=== PATIENT | female | born 2000 | race Caucasian/White ===

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

== ENCOUNTER → 2022-08-15 | Outpatient (CLI) | payer OTHER, SELFPAY ==
--- NOTE | 2022-08-15 14:25 | US_ITS ---
STUDY: FIRST TRIMESTER OBSTETRICAL ULTRASOUND REASON FOR EXAM: Female, 21 years old dating LMP: June 07, 2022 TECHNIQUE: Transvaginal TECHNICAL QUALITY: Adequate. PRIOR ULTRASOUND: None. FINDINGS: There is visualization of a single gestational sac in a normal intrauterine position. The mean sac diameter (MSD) measures 9.9 mm, indicating an estimated gestational age (EGA) of 5 weeks, 5 days. The gestational sac shape is within normal limits. There is a visualized yolk sac. The yolk sac measures 2.8 mm. The placenta is non-visualized. There is no demonstrated embryo ( pole). The estimated gestation age (EGA) by LMP is 9 weeks, 6 days. The estimated date of delivery (GUILLE) by LMP is March 14, 2023.. The estimated gestation age (EGA) by US is 5 weeks, 5 days. The estimated date of delivery (GUILLE) by US is April 12, 2023. The uterus measures 7.2 cm x 4.5 cm x 3.7 cm. There is no demonstrated uterine fibroid. The cervix is closed. The right ovary measures 3.2 cm x 2.4 cm x 1.6 cm. There is no right ovarian cyst. There is no visualized right adnexal mass or complex lesion. The left ovary measures 3.6 x 1.9 cm x 1.8 cm. There is no left ovarian cyst. There is no visualized left adnexal mass or complex lesion. There is minimal fluid in the cul de sac. US/Init OB < 14Wks US IMPRESSION: Intrauterine gestational sac with a mean gestational age of 5 weeks and 5 days. Electronically Signed: Trey Green MD at 12:51 EDT ,
[2022-08-15 16:46] LABS: hCG Titer Quant., Serum 8686 mIU/mL (1-3)
== END | disposition home or self-care (01) ==
PROVIDERS: PCP Family Medicine; Referring Provider Obstetrics & Gynecology; Visit Provider Obstetrics & Gynecology
DX: O09.90 Supervision of high risk pregnancy, unspecified, unspecified trimester (principal); Z3A.00 Weeks of gestation of pregnancy not specified
CPT/HCPCS: 36415; 76801; 84702

== ENCOUNTER → 2022-08-17 | Outpatient (CLI) | payer OTHER, SELFPAY ==
[2022-08-17 16:13] LABS: hCG Titer Quant., Serum 14024 mIU/mL (1-3)
== END | disposition home or self-care (01) ==
PROVIDERS: PCP Family Medicine; Visit Provider Obstetrics & Gynecology
DX: O20.0 Threatened abortion (principal); Z3A.00 Weeks of gestation of pregnancy not specified
CPT/HCPCS: 84702

== ENCOUNTER → 2022-08-23 | Outpatient (CLI) | payer OTHER, SELFPAY ==
--- NOTE | 2022-08-23 16:48 | US_ITS ---
INDICATION: viability/dating EXAMINATION: Ultrasound US OB Transvaginal TECHNIQUE: Transvaginal (for optimal evaluation of the adnexa) pelvic ultrasound was performed. Grayscale, spectral waveform, and color flow Doppler evaluation of the adnexa. COMPARISON: 08/15/2022 LMP: [Unknown Beta-hCG: Unknown FINDINGS: UTERUS: 8.4 x 5.0 x 4.0 cm. RIGHT OVARY: 2.9 x 2.3 x 2.2 cm. Normal. LEFT OVARY: 3.7 x 2.2 x 1.5 cm. Normal. FREE FLUID: Trace in the cul-de-sac. INTRAUTERINE GESTATIONAL SAC: Single. Mean sac diameter 2.4 cm. YOLK SAC: Identified POLE: Identified CRL 0.73 cm. ESTIMATED GESTATION AGE: 6 weeks 5 days. HEART MOTION: 122 bpm. PLACENTA: Not visualized due to age. SUBCHORIONIC HEMORRHAGE: None. AMNIOTIC FLUID: Qualitatively normal. US/Transvaginal w/Preg US IMPRESSION: Single live intrauterine . Estimated gestational age is 6 weeks 5 days with GUILLE 04/12/2023. Electronically Signed: Brennan Tsai MD at 0:48 EDT ,
== END | disposition home or self-care (01) ==
PROVIDERS: PCP Family Medicine; Referring Provider Obstetrics & Gynecology; Visit Provider Obstetrics & Gynecology
DX: O20.0 Threatened abortion (principal); Z3A.01 Less than 8 weeks gestation of pregnancy
CPT/HCPCS: 76817

== ENCOUNTER → 2022-09-16 | Outpatient (CLI) | payer OTHER, SELFPAY ==
[2022-09-19 10:08] LABS: Chlamydia By Nucleic Acid AMP Negative (Negative); Gonococcus By Nucleic Acid AMP Negative (Negative)
== END | disposition home or self-care (01) ==
LOC: LABSPEC 15:22
PROVIDERS: PCP Family Medicine; Referring Provider Registered Nurse; Visit Provider Registered Nurse
DX: O09.90 Supervision of high risk pregnancy, unspecified, unspecified trimester (principal); Z3A.00 Weeks of gestation of pregnancy not specified
CPT/HCPCS: 87086; 87491; 87591

== ENCOUNTER → 2022-09-19 | Outpatient (CLI) | payer OTHER, SELFPAY ==
[2022-09-19 15:26] LABS: Absolute Lymphocyte Count 1.82 X10^3/uL (0.83-4.51); Absolute Neutrophil Count 7.6 X10^3/uL (2.0-7.7); Basophil# 0.03 X10^3/uL; Basophil% 0.3 % (0-1); Eosinophil# 0.05 X10^3/uL; Eosinophils% 0.5 % (0-5); Lymphocyte # 1.82 X10^3/ul (0.83-4.51); Lymphocyte % 18.3 % (19-41); Mean Corp Hgb Conc 32.5 g/dL (32-36); Mean Corpuscular Volume 89.3 fL (81-99); Mean Platelet Vol. 9.3 fl (6.2-12.0); Monocyte# 0.41 X10^3/uL; Monocyte% 4.1 % (0-10); NRBC Flagged by Analyzer 0 % (0-5); Neutrophil % 76.3 % (47-70); Platelet Count 277 K/mm3 (150-450); RBC Distribution Width CV 12.5 % (11.6-14.6); RBC Distribution Width SD 41.1 fl (35.1-43.9); Red Blood Count 4.48 M/mm3 (4.2-5.4)
[2022-09-19 15:58] LABS: Glucose Challenge Gest 1H 50g 174 mg/dL (70-140)
[2022-09-19 16:15] LABS: NATERA MAILED SPECIMEN
[2022-09-19 16:45] LABS: HIV - WCH Non-Reactive (Nonreactive); Hepatitis B Surface Antigen Non-Reactive (Nonreactive); Hepatitis C Antibody Non-Reactive (Nonreactive); Rubella IgG Reactive (Nonreactive); Syphilis Antibodies Non-reactive
== END | disposition home or self-care (01) ==
LOC: PAVLAB 15:01
PROVIDERS: PCP Family Medicine; Referring Provider Registered Nurse; Visit Provider Registered Nurse
DX: O99.210 Obesity complicating pregnancy, unspecified trimester (principal); Z3A.00 Weeks of gestation of pregnancy not specified
CPT/HCPCS: 36415; 82950; 85025; 86703; 86762; 86780; 86803; 86850; 86900; 86901; 87340

== ENCOUNTER → 2022-09-26 | Outpatient (CLI) | payer OTHER, SELFPAY ==
[2022-09-26 07:56] LABS: Glucose GTT-Gestation. Fasting 93 mg/dL (<105)
[2022-09-26 09:08] LABS: Glucose GTT-Gestational 1 Hr 138 mg/dL (<190)
[2022-09-26 09:49] LABS: Glucose GTT-Gestational 2 Hr 109 mg/dL (<165)
[2022-09-26 11:59] LABS: Glucose GTT-Gestational 3 Hr 75 L (<145)
== END | disposition home or self-care (01) ==
LOC: LAB 06:56
PROVIDERS: PCP Family Medicine; Referring Provider Registered Nurse; Visit Provider Registered Nurse
DX: Z13.1 Encounter for screening for diabetes mellitus (principal)
CPT/HCPCS: 36415; 82951; 82952

== ENCOUNTER → 2023-01-09 | Outpatient (CLI) | payer OTHER, SELFPAY ==
[2023-01-09 13:54] LABS: Absolute Lymphocyte Count 1.93 X10^3/uL (0.83-4.51); Absolute Neutrophil Count 13.1 X10^3/uL (2.0-7.7); Basophil# 0.04 X10^3/uL; Basophil% 0.3 % (0-1); Eosinophil# 0.08 X10^3/uL; Eosinophils% 0.5 % (0-5); Hematocrit 34.8 % (37-47); Hemoglobin 11.4 g/dL (12.0-15.0); Lymphocyte # 1.93 X10^3/ul (0.83-4.51); Lymphocyte % 12.2 % (19-41); Mean Corp Hgb Conc 32.8 g/dL (32-36); Mean Corpuscular Hgb 28.7 pg (27.0-32.0); Mean Corpuscular Volume 87.7 fL (81-99); Mean Platelet Vol. 9.7 fl (6.2-12.0); Monocyte# 0.51 X10^3/uL; Monocyte% 3.2 % (0-10); NRBC Flagged by Analyzer 0 % (0-5); Neutrophil # 13.06 X10^3/uL (2.7-7.7); Neutrophil % 82.8 % (47-70); Platelet Count 284 K/mm3 (150-450); RBC Distribution Width SD 41.3 fl (35.1-43.9); Red Blood Count 3.97 M/mm3 (4.2-5.4); White Blood Count 15.8 K/mm3 (4.4-11.0)
[2023-01-09 14:09] LABS: Glucose Challenge Gest 1H 50g 175 mg/dL (70-140)
[2023-01-09 14:49] LABS: HIV - WCH Non-Reactive (Nonreactive); Syphilis Antibodies Non-reactive
== END | disposition home or self-care (01) ==
PROVIDERS: PCP Family Medicine; Referring Provider Obstetrics & Gynecology; Visit Provider Obstetrics & Gynecology
DX: O09.90 Supervision of high risk pregnancy, unspecified, unspecified trimester (principal); Z3A.00 Weeks of gestation of pregnancy not specified
CPT/HCPCS: 36415; 82950; 85025; 86703; 86780

== ENCOUNTER → 2023-01-30 | Outpatient (CLI) | payer OTHER, SELFPAY ==
[2023-01-30 07:12] LABS: Glucose GTT-Gestation. Fasting 88 mg/dL (<105)
[2023-01-30 08:28] LABS: Glucose GTT-Gestational 1 Hr 159 mg/dL (<190)
[2023-01-30 09:29] LABS: Glucose GTT-Gestational 2 Hr 121 mg/dL (<165)
[2023-01-30 10:45] LABS: Glucose GTT-Gestational 3 Hr 66 L (<145)
== END | disposition home or self-care (01) ==
LOC: LAB 06:46
PROVIDERS: PCP Family Medicine; Referring Provider Advanced Practice Midwife; Visit Provider Advanced Practice Midwife
DX: O99.810 Abnormal glucose complicating pregnancy (principal); Z3A.00 Weeks of gestation of pregnancy not specified
CPT/HCPCS: 36415; 82951; 82952

== ENCOUNTER → 2023-03-20 | Outpatient (CLI) | payer OTHER, SELFPAY | END | disposition home or self-care (01) | PROVIDERS: PCP Family Medicine; Referring Provider Obstetrics & Gynecology; Visit Provider Obstetrics & Gynecology | DX: O09.90 Supervision of high risk pregnancy, unspecified, unspecified trimester (principal); Z3A.00 Weeks of gestation of pregnancy not specified | CPT/HCPCS: 87081 ==

== ENCOUNTER 2023-07-15 07:53 | Day surgery (SDC) | payer OTHER, SELFPAY ==
--- NOTE | 2023-07-15 07:39 | HP.PCM_ITS ---
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 Is patient in pain?: No Allergies amoxicillin (From Augmentin) Allergy (Severe, Verified 07/03/23 08:59) Unknownclavulanic acid (From Augmentin) Allergy (Severe, Verified 07/03/23 08:59) Unknown Medications ?Medication ?Instructions ?Recorded ?Confirmed ?Type estradiol 0.01% (0.1 mg/gram) See Rx Instructions vaginal 06/04/23 07/03/23 Rx vaginal cream .COMPLEX #42.5 grams magnesium 250 mg tablet 250 mg PO DAILY 06/04/23 07/03/23 History Post menopausal: No Patient : No : No PFSH Medical History Acne Agent affecting skin causing adverse effect Close exposure to COVID-19 virus Dysmenorrhea Encounter for removal and reinsertion of Nexplanon Sore throat Staphylococcal infection of skin Surgical History S/P myringotomy with insertion of tube Family History Grandmother Heart disease Breast cancerGrandfather Heart disease HypertensionFather Hyperlipidemia Social History adopted: No household members: spouse housing: house current occupational status: employed current occupation: [employer] current occupational exposures/hazards: No pets and animals: Yes pets and animals: dog(s) history of recent travel: No sexually active: Yes Smoking Status: Never smoker alcohol intake: never substance use type: does not use caffeine: Yes Type: coffee what type of physical activity do you participate in: none seatbelt use: always do you feel safe at home: Yes HPI labioplasty Details: CLARE WARNER is a 22 year old who presents for labial agglutination and scarring post vaginal home . Female Reproductive History Menopausal Symptoms: No night sweats History 1 Elective abortions Hx Para 1 Spontaneous abortions Hx # Term Pregnancies Ectopic pregnancies Hx # Pregnancies Multiple births # of living children 1 Past Pregnancies Del. Date Name GA/Weeks Outcome Route Bth Weight 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 Const Constitutional: Denies fatigue, night sweats, weight gain or weight loss ENT ENT: Reports system reviewed and no additional complaints, except as documented Cardio Card: Denies chest pain Resp Resp: Denies cough or dyspnea GI GI: Reports as per HPI; Denies abdominal pain, constipation, nausea or vomiting : Denies nipple discharge, urinary frequency, urinary incontinence, urinary hesitancy, urinary urgency, vaginal discharge, vaginal dryness, vaginal odor or vaginal pruritus Musc Musc: Denies arthralgias, back pain or muscle weakness Skin Skin/Breast: Denies alopecia, change in hair, dry skin, breast mass, breast pain, breast skin changes or nipple discharge Neuro Neuro: Reports system reviewed and no additional complaints, except as documented Psych Psych: Reports system reviewed and no additional complaints, except as documented Endo Endo: Denies cold intolerance, excessive sweating, heat intolerance or polydipsia Alex/Lymph Hematologic/Lymphatic: Denies easy bleeding, Denies easy bruising and Denies lymphadenopathy Exam Const General: cooperative, healthy appearing, comfortable and no acute distress Orientation: alert HENAL Head: normal to inspection and normocephalic Ears: hearing grossly normal bilaterally and external ears normal Nose: external nose normal and nares normal Face and sinus: normal facial exam Neck Neck: normal visual inspection and no lymphadenopathy Thyroid: thyroid normal Chest Chest palpation & inspection: normal inspection of the chest Resp Effort & Inspection: normal respiratory effort Cardio Rate: regular rate GI Inspection: normal to inspection and non-distended Palpation: soft and no hepatosplenomegaly Musc Other: gross motor intact no deficits, full bilateral strength Skin General: no rashes or lesions noted Neuro General: patient alert, patient awake, moves all extremities and no focal motor deficits Motor: muscle tone normal throughout Extrem General: normal to inspection and no pedal edema Psych Appearance: grossly normal Mental Status: mental status grossly normal Affect: normal affect Speech and Movement: speech and movement normal Coding Level of Care Code No Charge Diagnoses Vaginal scar N89.8 Assessment and Plan Assessment and Plan (1) Vaginal scar: Status: Acute Comment: estradiol cream/post introitus from -labialplasty planned per SM Plan After discussing the patient's diagnosis and treatment plan options, patient wishes to proceed with surgical management. I have discussed with the patient the risks, benefits, and alternatives of the procedure which include but are not limited to risks of anesthesia, bleeding, infection, possible damage to bowel, bladder, or surrounding vasculature which could lead to additional surgery to evaluate any complications. Patient agrees to procedure and wishes to proceed. ACOG/uptodate references given for additional information regarding procedure. UPDATE- I have seen the patient and performed any clinically relevant updates to the history and physical exam. Adwoa Willis MD
[2023-07-15 08:09] VITALS: BP 137/81; PULSE 101; RESP 16; TEMP 36.9; O2SAT 100; BMI 33.6
[2023-07-15] MEDS: Lactated Ringers 1,000 ML 15 ML IV (08:14)
[2023-07-15 08:15] LABS: Internal QC Validated? YES +Cl - CLEAR BKGD; Pregnancy, Urine Negative Negative
--- NOTE | 2023-07-15 08:38 | PCM.PRE.AN2 ---
ASA Classification ASA Classification ASA Classification: 2 Pre-Assessment* Diagnosis/Proposed Procedure Planned Operative Procedure(s): LABIAPLASTY/PERINEOPLASTY Anesthesia History History Obtained from:: Patient Anesthesia History - welding machine operator resistance: Anesthesia History - welding machine operator resistance Hx Hospitalization No 07/08/23 15:11 Any Problems With Anesthesia No 07/08/23 15:11 Cholinesterase deficiency No 07/08/23 15:11 You/Your Family Experience No 07/08/23 15:11 fever (hyperthermia) with Relationship Recent Exposure to Contagious No 07/15/23 08:09 Disease Does patient have nerve No 07/08/23 15:11 stimulator Patient instructed to have device shut off --Does patient have Pacemaker No 07/15/23 08:09 or ICD? When Was Last Pacemaker Check QUESTION #4 FULL TEXT: You/Your Family Experience fever (hyperthermia) with Anesthesia Airway/Respiratory Assessment Mouth opens (cm): 3 Mallampati Score: II Teeth Condition: Intact Respiratory Assessment - welding machine operator resistance: Respiratory Tract Infection Hx - welding machine operator resistance Hx Respiratory Tract Infection No 07/08/23 15:11 STOP Sleep Apnea STOP Sleep Apnea - welding machine operator resistance: STOP Sleep Apnea - welding machine operator resistance Hx Hypertension No 07/08/23 15:11 Hx Sleep Apnea No 07/08/23 15:11 CPAP BIPAP Do you snore loudly (louder No 07/08/23 15:11 than talking or can be heard Do you often feel tired/ No 07/08/23 15:11 fatigued/ sleepy during daytime? Has anyone observed you stop No 07/08/23 15:11 breathing during sleep? STOP Results Negative 07/08/23 15:11 QUESTION #5 FULL TEXT : Do you snore loudly (louder than talking or can be heard through closed doors)? Tobacco Use History Tobacco Use History - welding machine operator resistance: Tobacco Use Histor - welding machine operator resistance Tobacco Use Smoking Status Never smoker 07/08/23 15:11 Hx Tobacco Use No 07/08/23 15:11 Years Smoking Packs Smoked per Day Smoking Cessation Date was within the last 15 years Hx Smoking Cessation Date Hx Smoking Cessation Counseling /Reproduction History /Reproductive History - welding machine operator resistance: /Reproductive Hx- welding machine operator resistance Hx Now No 07/08/23 15:11 Gestational Age (in weeks): EDC: Hx Hx Para Hx Section SAB No 07/08/23 15:11 Hematologic Medial History Hematologic Hx - welding machine operator resistance: 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 Specify any problems Hx of Preganancy in last 3 No 07/08/23 15:11 Months Nurse Filling Out Transfusion DSCHRIBER 07/08/23 15:11 & Questions: Date: 07/08/23 07/08/23 15:11 Time: 15:13 07/08/23 15:11 Patient unable to answer at this time (ie. confused, unrespo PONV PONV - welding machine operator resistance: PONV - welding machine operator resistance Female Yes 07/08/23 15:11 HX of Motion Sickness No 07/08/23 15:11 HX of N/V After Surgery No 07/08/23 15:11 Non-Smoker Yes 07/08/23 15:11 Duration of Surgery greater Yes 07/08/23 15:11 than 60 minutes Number of Risk Factors 3 07/08/23 15:11 PONV Score Moderate Risk 07/08/23 15:11 Pertinent Findings Stress Test Pertinent Findings:: pass ECHO Pertinent Findings:: [id number] Anesthesia focused assessment* Height & Weight: Anesthesia: Height & Weight Height 1.63 m 07/15/23 08:09 Weight: 88.904 kg 07/15/23 08:09 Body Mass Index (BMI) 33.6 07/15/23 08:09 Temperature: 98.4 F Pulse Rate: 101 Blood Pressure: 137/81 Respiratory Rate: 16 Pulse Ox: 100 Active Medications: Current Medications Generic Name Dose Route Start Last Admin Trade Name Freq PRN Reason Stop Dose Admin Lactated Ringer's 1,000 mls @ 15 mls/hr 07/15/23 08:15 07/15/23 08:14 IV 15 mls/hr .Q48H ZO Administration Focused labs Anesthesia Preop lab: CBC WBC 15.8 K/mm3 (4.4-11.0) H 01/09/23 13:45 RBC 3.97 M/mm3 (4.2-5.4) L 01/09/23 13:45 Hgb 11.4 g/dL (12.0-15.0) L 01/09/23 13:45 Hct 34.8 % (37-47) L 01/09/23 13:45 Plt Count 284 K/mm3 (150-450) 01/09/23 13:45 CHEMISTRY COAG HCG, Quant 97244 mIU/mL (1-3) H 08/17/22 15:01 Assessment & Plan Anesthesia* Anesthesia Assessment Anesthesia Assessment: Discussed sedation and/or anesthesia options, risks, benefits, and alternatives with patient/parents/legal guardian. Questions invited. The patient/parents/legal guardian/POA seems to understand and agrees to proceed with anesthesia plan. Reviewed the physical assessment, medical history, allergy history and patient home medications list prior to surgery/procedure/anesthetic and documented any changes. Performed airway and anesthesia risk assessments. Procedural Plan (POC = Plan of care) Procedural Plan:: Proceed w/ POC Anesthesia Type Anesthesia Type: MAC Review of Systems (Anesthesia) ROS Narrative System reviewed and no additional complaints, except as documented. [facility] Medical History Wears glasses Low iron Migraine headache Asthma Non-smoker Agent affecting skin causing adverse effect Staphylococcal infection of skin Encounter for removal and reinsertion of Nexplanon Close exposure to COVID-19 virus Sore throat Acne Dysmenorrhea Home Medications ?Medication ?Instructions ?Recorded ?Last Taken ?Type magnesium 250 mg tablet 250 mg PO DAILY 06/04/23 Unknown History Allergy/AdvReac Type Severity Reaction Status Date / Time amoxicillin (From Augmentin) Allergy Severe Unknown Verified 07/15/23 08:09 clavulanic acid (From Allergy Severe Unknown Verified 07/15/23 08:09 Augmentin) Family History Grandmother Heart disease Breast cancer Grandfather Heart disease Hypertension Father Hyperlipidemia Surgical History S/P myringotomy with insertion of tube Social History adopted: No household members: spouse housing: house current occupational status: employed current occupation: [employer] current occupational exposures/hazards: No pets and animals: Yes pets and animals: dog(s) history of recent travel: No sexually active: Yes Smoking Status: Never smoker alcohol intake: never substance use type: does not use caffeine: Yes Type: coffee what type of physical activity do you participate in: none seatbelt use: always do you feel safe at home: Yes
--- NOTE | 2023-07-15 09:20 | PCM.OPRPT ---
Problems Associated Problem List Diagnoses (1) Vaginal scar: Report of Operation Date of Procedure: 07/15/23 Pre-Operative Diagnosis: vaginal scar post delivery Post-Operative Diagnosis: same Surgery/Procedure Performed:: labiaplasty Description of Surgical Findings:: labial adhesion Surgeon: Adwoa Willis woods overseer: Irvin Hanley Specimen's removed: none Estimated Blood Loss (mL): 15 Description of Procedure: patient placed under mac anesthesia, prepped and draped in dorasal lithotomy in sterile fashion. labial adhesion injected with lidocaine and incised with calpel, bovie used for hemostasis. interrupted sutures of 3-0 rapide used to suture the labia bilaterally to restore normal anatomy. normal perineal body intergrity confirmed no surgical incision needed there or repair. hemostasis noted and premarin cream applied patient awoken and taken to recovery in stable condition. bilateral labial incision 1.5cm repaired Procedure Start Time: 10:09 Procedure Stop Time: 10:18 Multi Select Codes Urinary/Genital Urinary/Genital CPT Codes: 71692 Partial removal of vulva (labiaplasty)
--- NOTE | 2023-07-15 09:20 | PCM.DC ---
Discharge Instructions Diet Discharge Diet: No restrictions Activity Discharge Activity: Return to Normal Activity, May Not Drive (while taking narcotic pain medications.) and May Shower May resume sexual activity in: 4-6 weeks Dressing / Incision Call your doctor if your incision/area has: Continuous Slow Oozing, Sudden Increased Bleeding, Increased Pain/ Swelling, Increased Redness and Foul Smelling Discharge Follow Up Care Please Follow Up With: Adwoa Willis MD When: 4 weeks Test Results: Test results from this visit will be discussed in further detail at your follow-up appointment, if applicable. Discharge Plan Admission Attending Provider: Adwoa Willis Primary Care Provider: Francisco Ortiz Instructions Print Language: Chinese Discharge Orders/Prescriptions Prescriptions: No Action magnesium 250 mg tablet 250 mg PO DAILY Referrals / Follow Up: Francisco Ortiz MD [Primary Care Provider] - Disposition Disposition (needs filled in before D/C Order can be placed): Home, Self Care
[2023-07-15] MEDS: Estrogens,Conj. 1 Tube 1 DOSE (09:34)
[2023-07-15] MEDS: Lidocaine 1% /Epi 1:100 (20ml) 20 ML Vial (10:28)
[2023-07-15 10:31] VITALS: BP 115/58; BP 137/81; PULSE 90; RESP 16; TEMP 36.4; O2SAT 95
[2023-07-15 10:35] VITALS: BP 110/61; BP 137/81; PULSE 86; RESP 16; O2SAT 97
[2023-07-15 10:40] VITALS: BP 108/63; BP 137/81; PULSE 89; RESP 16; O2SAT 98
[2023-07-15 10:46] VITALS: BP 103/66; BP 137/81; PULSE 88; RESP 16; TEMP 37.1; O2SAT 97
[2023-07-15 11:09] VITALS: BP 137/81
== END 2023-07-15 11:13 | disposition home or self-care (01) ==
LOC: SDC 07:54 → AC 07:55
PROVIDERS: Anesthesiology; PCP Family Medicine; Referring Provider Obstetrics & Gynecology; Visit Provider Obstetrics & Gynecology
PROC: (CPT 56620; principal; 2023-07-15 09:15)
DX: N89.8 Other specified noninflammatory disorders of vagina (principal)
CPT/HCPCS: 56620; 00906; 81025; J7120; J2405

== ENCOUNTER → 2024-01-29 | Outpatient (CLI) | payer OTHER, BC, SELFPAY ==
[2024-02-02 21:06] LABS: Chlamydia By Nucleic Acid AMP Negative (Negative); Gonococcus By Nucleic Acid AMP Negative (Negative)
== END | disposition home or self-care (01) ==
LOC: LABSPEC 16:10
PROVIDERS: PCP Family Medicine; Referring Provider Nurse Practitioner Family; Visit Provider Nurse Practitioner Family
DX: N89.8 Other specified noninflammatory disorders of vagina (principal)
CPT/HCPCS: 87070; 87205; 87491; 87591